=== PATIENT | female | born 1960 ===

== ENCOUNTER 2023-03-24 10:14 | Emergency (ER) | payer BC ==
[2023-03-24 10:23] VITALS: BP 134/77; PULSE 89
[2023-03-24] MEDS ORDERED: Ketorolac 30 MG/ML SDV IM ONE (10:46)
[2023-03-24] MEDS ORDERED: Ondansetron 4 MG Tab.DIS PO ONE (10:47)
[2023-03-24] MEDS ORDERED: Acetaminophen/oxyCODONE 325-5 MG Tab PO ONE (10:47)
[2023-03-24 11:00] LABS: APPEARANCE,URINE CLEAR (CLEAR); BILIRUBIN,URINE NEGATIVE (NEGATIVE); COLOR,URINE YELLOW (YELLOW); GLUCOSE,URINE NEGATIVE (NEGATIVE); KETONES,URINE NEGATIVE (NEGATIVE); LEUKOCYTE ESTERASE,URINE NEGATIVE (NEGATIVE); NITRITE,URINE NEGATIVE (NEGATIVE); OCCULT BLOOD,URINE NEGATIVE (NEGATIVE); PH,URINE 6.5 (5.0-9.0); PROTEIN,URINE TRACE (NEGATIVE); UROBILINOGEN,URINE 0.2 mg/dL (0.2-1.0)
[2023-03-24 11:14] LABS: EPITHELIAL CELLS,URINE FEW /HPF (NOT SEEN); MUCUS,URINE MANY /LPF (NOT SEEN)
[2023-03-24 11:15] LABS: BACTERIA,URINE FEW /HPF (0-FEW/HPF); RBC,URINE 0-5 /HPF (0-5); WBC,URINE 0-5 /HPF (0-5/HPF)
[2023-03-24] MEDS ORDERED: Take Home: Ondansetron 4 MG Tab.DIS, 5 Tab Pack PO ONE (11:57)
[2023-03-24] MEDS ORDERED: Take Home: Acetaminophen/oxyCODONE 325-5 MG, 5 Tab Pack PO ONE (11:57)
[2023-03-24] MEDS ORDERED: Take Home: Cyclobenzaprine 10 MG Tab, 4 Tab Pack PO ONE (11:57)
== END 2023-03-24 12:16 | disposition home or self-care (01) ==
LOC: DL.ED 10:14
DX: S39.012A Strain of muscle, fascia and tendon of lower back, initial encounter (principal); S50.02XA Contusion of left elbow, initial encounter; E78.00 Pure hypercholesterolemia, unspecified; I10 Essential (primary) hypertension; E11.9 Type 2 diabetes mellitus without complications; Z79.84 Long term (current) use of oral hypoglycemic drugs; Z79.899 Other long term (current) drug therapy; Z88.8 Allergy status to other drugs, medicaments and biological substances; Z88.1 Allergy status to other antibiotic agents; Z88.5 Allergy status to narcotic agent; Z88.2 Allergy status to sulfonamides; Z88.6 Allergy status to analgesic agent; W00.9XXA Unspecified fall due to ice and snow, initial encounter
CPT/HCPCS: 71100; 72100; 81001; 96372; 99283; A9270; J1885; Q0162